=== PATIENT | male | born 1980 | race Caucasian/White ===

== ENCOUNTER 2020-08-28 19:06 | Emergency (ER) | payer MEDICARE, BC, MEDICAID ==
[2020-08-28 19:28] VITALS: BP 134/75; PULSE 100
[2020-08-28] MEDS ORDERED: Sodium Chloride 0.9% 10 ML Syringe FLUSH PRN (19:39)
--- NOTE | 2020-08-28 19:53 | EDM.PDOC ---
ED HPI GENERAL MEDICAL PROBLEM - General Chief Complaint: Neurological Problem Stated Complaint: CONFUSION Time Seen by Provider: 08/28/20 19:29 Source of Information: Reports: Patient, Provider History Limitations: Reports: Other (sleepy) - History of Present Illness INITIAL COMMENTS - FREE TEXT/NARRATIVE: The patient presents with confusion and sleepiness. The patient is dev elopmentally delayed. Staff from Support Services are here with him. They saw since yesterday the patient has been sleeping more and hard to arouse at times. He also has been confused. Today he fell asleep while eating. He has a history of seizures and he has a vagal nerve stimulator. He is also on depakote and a few other medications. He is given his medications to take daily and he has no access to his medications. There is no way he would have taken more. There has been no changes to his medications since February. He does not have a fever. He complains of no pain. He has no cough. Onset: Gradual Duration: Day(s): (Yesterday) Severity: Moderate Improves with: Reports: None Worsens with: Reports: None Associated Symptoms: Reports: Confusion. Denies: Chest Pain, Cough, Fever/Chills, Headaches, Nausea/Vomiting, Shortness of Breath - Related Data Allergies Allergy/AdvReac Type Severity Reaction Status Date / Time No Known Allergies Allergy Verified 08/28/20 19:27 Home Meds: Home Meds Multivit-Min/FA/Lycopene/Lut [Century Tablet] 1 tab PO DAILY 11/19/14 [History] Vitamin E (Dl,Tocopheryl Acet) [Vitamin E] 400 units PO DAILY 11/19/14 [History] lamoTRIgine [Lamotrigine] 100 mg PO BID 11/19/14 [History] risperiDONE [Risperdal] 1 mg PO BID 11/19/14 [History] ClonazePAM [KlonoPIN] 0.5 mg PO BID 08/28/20 [History] Divalproex Sodium 500 mg PO TID 08/28/20 [History] PARoxetine HCL [Paxil] 30 mg PO DAILY 08/28/20 [History] Ranitidine [Zantac] 150 mg PO DAILY 08/28/20 [History] Simvastatin [Zocor] 10 mg PO BEDTIME 08/28/20 [History] atoMOXetine HCl [Strattera] 25 mg PO DAILY 08/28/20 [History] Past Medical History Neurological History: Reports: Seizure, Other (See Below) Other Neuro History: being monitored for possible Parkinson's Psychiatric History: Reports: ADHD, Autism, Other (See Below) Other Psychiatric History: MR, disruptive behavior disorder - Past Surgical History Neurological Surgical History: Reports: Other (See Below) Other Neurological Surgeries/Procedures: VNS Social & Family History - Tobacco Use Tobacco Use Status *Q: Never Tobacco User Second Hand Smoke Exposure: No - Recreational Drug Use Recreational Drug Use: No ED ROS GENERAL - Review of Systems Review Of Systems: See Below Constitutional: Reports: No Symptoms HEENT: Reports: No Symptoms Respiratory: Reports: No Symptoms Cardiovascular: Reports: No Symptoms Endocrine: Reports: No Symptoms GI/Abdominal: Reports: No Symptoms : Reports: No Symptoms Musculoskeletal: Reports: No Symptoms ED EXAM, NEURO - Physical Exam Exam: See Below Exam Limited By: Other (sleepy) General Appearance: Other (sleepy) Ears: Normal External Exam Nose: Normal Inspection Head Exam: Atraumatic, Normocephalic Neck: Normal Inspection Respiratory/Chest: No Respiratory Distress, Lungs Clear, Normal Breath Sounds Cardiovascular: Regular Rate, Rhythm, No Edema, No Murmur GI/Abdominal: Soft, Non-Tender, No Organomegaly, No Mass Neurological: Other (Sleepy. He will awake easily but he falls right back asleep. He would answer some questions. He does follow commands and he had no weakness.) #1 Interpretation EKG Date: 08/28/20 Time: 19:49 Rhythm: NSR Rate (Beats/Min): 95 [place]: Normal P-Wave: Present QRS: Normal ST-T: Other (flattened T waves lateral leads) QT: Normal Course - Vital Signs Last Recorded V/S: Last Vital Signs Temp 97 F 08/28/20 19:25 Pulse 100 08/28/20 19:25 Resp 16 08/28/20 19:25 BP 134/75 08/28/20 19:25 Pulse Ox 93 L 08/28/20 19:25 - Orders/Labs/Meds Orders: Active Orders 24 hr Category Date Time Status Cardiac Monitoring [RC] . DIRECTED Care 08/28/20 19:39 Active EKG Documentation Completion [RC] STAT Care 08/28/20 19:40 Active Peripheral IV Care [RC] . DIRECTED Care 08/28/20 19:40 Active Sodium Chloride 0.9% [Saline Flush] Med 08/28/20 19:39 Active 10 ml FLUSH ASDIRECTED PRN Peripheral IV Insertion Adult [OM.PC] Stat Oth 08/28/20 19:39 Ordered Medication Orders Sodium Chloride (Sodium Chloride 0.9% 10 Ml Syringe) 10 ml FLUSH ASDIRECTED PRN PRN Reason: Keep Vein Open Labs: Laboratory Tests 08/28/20 08/28/20 08/28/20 Range/Units 20:15 20:15 20:15 WBC 12.50 H (4.23-9.07) K/mm3 RBC 4.45 L (4.63-6.08) M/mm3 Hgb 12.8 L (13.7-17.5) gm/dl Hct 39.7 L (40.1-51.0) % MCV 89.2 (79.0-92.2) fl MCH 28.8 (25.7-32.2) pg MCHC 32.2 (32.2-35.5) g/dl RDW Std Deviation 48.2 H (35.1-43.9) fL Plt Count 226 (163-337) K/mm3 MPV 9.2 L (9.4-12.3) fl Neut % (Auto) 35.8 (34.0-67.9) % Lymph % (Auto) 49.5 (21.8-53.1) % [place] % (Auto) 11.1 (5.3-12.2) % Eos % (Auto) 3.0 (0.8-7.0) Baso % (Auto) 0.4 (0.1-1.2) % Neut # (Auto) 4.47 (1.78-5.38) K/mm3 Lymph # (Auto) 6.19 H (1.32-3.57) K/mm3 [place] # (Auto) 1.39 H (0.30-0.82) K/mm3 Eos # (Auto) 0.37 (0.04-0.54) K/mm3 Baso # (Auto) 0.05 (0.01-0.08) K/mm3 Manual Slide Review Abnormal smear Sodium 144 (136-145) mEq/L Potassium 3.8 (3.5-5.1) mEq/L Chloride 106 (98-107) mEq/L Carbon Dioxide 30 (21-32) mEq/L Anion Gap 11.8 (5-15) BUN 12 (7-18) mg/dL Creatinine 0.8 (0.7-1.3) mg/dL Est Cr Clr Drug Dosing 139.85 mL/min Estimated GFR (MDRD) > 60 (>60) mL/min BUN/Creatinine Ratio 15.0 (14-18) Glucose 131 H (70-99) mg/dL Calcium 9.9 (8.5-10.1) mg/dL Magnesium 1.6 L (1.8-2.4) mg/dL Total Bilirubin 0.1 L (0.2-1.0) mg/dL AST 12 L (15-37) U/L ALT 33 (16-63) U/L Alkaline Phosphatase 50 (46-116) U/L Troponin I < 0.017 (0.00-0.056) ng/mL C-Reactive Protein <0.2 (<1.0) mg/dL Total Protein 6.5 (6.4-8.2) g/dl Albumin 3.4 (3.4-5.0) g/dl Globulin 3.1 gm/dL Albumin/Globulin Ratio 1.1 (1-2) TSH 3rd Generation (0.358-3.74) uIU/mL Urine Color (Yellow) Urine Appearance (Clear) Urine pH (5.0-8.0) Ur Specific [place] (1.005-1.030) Urine Protein (Negative) Urine Glucose (UA) (Negative) Urine Ketones (Negative) Urine Occult Blood (Negative) Urine Nitrite (Negative) Urine Bilirubin (Negative) Urine Urobilinogen (0.2-1.0) Ur Leukocyte Esterase (Negative) U Hyaline Cast (Auto) (0-5) /lpf Urine RBC (0-5) /hpf Urine WBC (0-5) /hpf Ur Squamous Epith Cells (0-5) /hpf Amorphous Sediment (NOT SEEN) /hpf Urine Bacteria (FEW) /hpf Urine Mucus (FEW) /hpf Urine Opiates Screen (TJTLVJ=149) Ur Buprenorphine Scrn (CUTOFF=10) Ur Oxycodone Screen (DWM1HQ=626) Urine Methadone Screen (POX3NV=245) Ur Propoxyphene Screen (BHLVHV=227) Ur Barbiturates Screen (CTOKJS=019) Ur Tricyclics Screen (PODGCE=552) Ur Phencyclidine Scrn (CUTOFF=25) Ur Amphetamine Screen (DHMKSS=820) U Methamphetamines Scrn (HTZOQS=066) U Benzodiazepines Scrn (OHDMGM=395) U Cocaine Metab Screen (CZCXEU=734) U Marijuana (THC) Screen (CUTOFF=50) Ethyl Alcohol 0.00 (0.00) gm% 08/28/20 08/28/20 08/28/20 Range/Units 20:15 21:10 21:10 WBC (4.23-9.07) K/mm3 RBC (4.63-6.08) M/mm3 Hgb (13.7-17.5) gm/dl Hct (40.1-51.0) % MCV (79.0-92.2) fl MCH (25.7-32.2) pg MCHC (32.2-35.5) g/dl RDW Std Deviation (35.1-43.9) fL Plt Count (163-337) K/mm3 MPV (9.4-12.3) fl Neut % (Auto) (34.0-67.9) % Lymph % (Auto) (21.8-53.1) % [place] % (Auto) (5.3-12.2) % Eos % (Auto) (0.8-7.0) Baso % (Auto) (0.1-1.2) % Neut # (Auto) (1.78-5.38) K/mm3 Lymph # (Auto) (1.32-3.57) K/mm3 [place] # (Auto) (0.30-0.82) K/mm3 Eos # (Auto) (0.04-0.54) K/mm3 Baso # (Auto) (0.01-0.08) K/mm3 Manual Slide Review Sodium (136-145) mEq/L Potassium (3.5-5.1) mEq/L Chloride (98-107) mEq/L Carbon Dioxide (21-32) mEq/L Anion Gap (5-15) BUN (7-18) mg/dL Creatinine (0.7-1.3) mg/dL Est Cr Clr Drug Dosing mL/min Estimated GFR (MDRD) (>60) mL/min BUN/Creatinine Ratio (14-18) Glucose (70-99) mg/dL Calcium (8.5-10.1) mg/dL Magnesium (1.8-2.4) mg/dL Total Bilirubin (0.2-1.0) mg/dL AST (15-37) U/L ALT (16-63) U/L Alkaline Phosphatase (46-116) U/L Troponin I (0.00-0.056) ng/mL C-Reactive Protein (<1.0) mg/dL Total Protein (6.4-8.2) g/dl Albumin (3.4-5.0) g/dl Globulin gm/dL Albumin/Globulin Ratio (1-2) TSH 3rd Generation 1.104 (0.358-3.74) uIU/mL Urine Color Yellow (Yellow) Urine Appearance Slt cloudy H (Clear) Urine pH 6.5 (5.0-8.0) Ur Specific [place] > or = 1.030 (1.005-1.030) Urine Protein Negative (Negative) Urine Glucose (UA) Negative (Negative) Urine Ketones Negative (Negative) Urine Occult Blood Negative (Negative) Urine Nitrite Negative (Negative) Urine Bilirubin Negative (Negative) Urine Urobilinogen 0.2 (0.2-1.0) Ur Leukocyte Esterase Negative (Negative) U Hyaline Cast (Auto) 10-20 H (0-5) /lpf Urine RBC Not seen (0-5) /hpf Urine WBC Not seen (0-5) /hpf Ur Squamous Epith Cells 0-5 (0-5) /hpf Amorphous Sediment Moderate H (NOT SEEN) /hpf Urine Bacteria Few (FEW) /hpf Urine Mucus Few (FEW) /hpf Urine Opiates Screen Negative (YHITSX=611) Ur Buprenorphine Scrn Negative (CUTOFF=10) Ur Oxycodone Screen Negative (QGA7WG=826) Urine Methadone Screen Negative (GFS6HL=693) Ur Propoxyphene Screen Negative (KSDCEF=469) Ur Barbiturates Screen Negative (WMBXSH=458) Ur Tricyclics Screen Negative (JSIVQU=666) Ur Phencyclidine Scrn Negative (CUTOFF=25) Ur Amphetamine Screen Negative (NNWSAK=022) U Methamphetamines Scrn Negative (UJGSIK=241) U Benzodiazepines Scrn Negative (QGWYCW=822) U Cocaine Metab Screen Negative (FCVTQQ=483) U Marijuana (THC) Screen Negative (CUTOFF=50) Ethyl Alcohol (0.00) gm% Meds: Medications Generic Name Dose Route Start Last Admin Trade Name Azar PRN Reason Stop Dose Admin Sodium Chloride 10 ml 08/28/20 19:39 Sodium Chloride 0.9% 10 Ml Syringe FLUSH ASDIRECTED PRN Keep Vein Open - Re-Assessments/Exams Free Text/Narrative Re-Assessment/Exam: 08/28/20 19:54 I ordered an IV saline lock, EKG, CT of his head, CXR, labs, UA, and urine drug screen. 08/28/20 21:48 His EKG shows a NSR with no acute changes. The CT of his head looks good. His CXR looks good. His WBC was slightly elevated at 12.5. His glucose was 131. His magnesium was a little low at 1.6. His troponin is negative. His CRP is negative. His TSH is normal. His UA shows no UTI. His UDS was negative and his ETOH was 0. I feel this may be his medications. I will have them hold his respiradone and clonazepam tonight and wean him off of the clonazepam. They will need to talk to Dr Marcelino tomorrow. Departure - Departure Time of Disposition: 21:55 Disposition: Home, Self-Care 01 Condition: Good Clinical Impression: Confusion, Daytime sleepiness - Discharge Information *PRESCRIPTION DRUG MONITORING PROGRAM REVIEWED*: Not Applicable *COPY OF PRESCRIPTION DRUG MONITORING REPORT IN PATIENT KHALIDA: Not Applicable Referrals: Elin Beach MD [Primary Care Provider] - 1 Week Forms: ED Department Discharge Additional Instructions: Do not give him his resperidone or clonazepam tonight. Continue with the resperidone 2 times per day tomorrow. Give him the clonazepam tomorrow night and the next night and then do every other night for 2 doses and then stop. Call Dr Marcelino tomorrow and get her input. She may have a totally different plan. Please return if Precious is worse. Sepsis Event Note (ED) - Evaluation Sepsis Screening Result: No Definite Risk - Focused Exam Vital Signs: Vital Signs Temp Pulse Resp BP Pulse Ox 08/28/20 19:25 97 F 100 16 134/75 93 L - My Orders Last 24 Hours: My Active Orders 08/28/20 19:39 Cardiac Monitoring [RC] . DIRECTED Sodium Chloride 0.9% [Saline Flush] 10 ml FLUSH ASDIRECTED PRN Peripheral IV Insertion Adult [OM.PC] Stat 08/28/20 19:40 EKG Documentation Completion [RC] STAT Peripheral IV Care [RC] . DIRECTED - Assessment/Plan Last 24 Hours: My Active Orders 08/28/20 19:39 Cardiac Monitoring [RC] . DIRECTED Sodium Chloride 0.9% [Saline Flush] 10 ml FLUSH ASDIRECTED PRN Peripheral IV Insertion Adult [OM.PC] Stat 08/28/20 19:40 EKG Documentation Completion [RC] STAT Peripheral IV Care [RC] . DIRECTED
--- NOTE | 2020-08-28 20:26 | CT ---
Head CT Technique: Multiple axial sections through the brain were obtained. Intravenous contrast was not utilized. Reconstructed coronal and sagittal images were obtained. Comparison: No prior intracranial imaging is available. Findings: Ventricles along with basal cisterns and sulci over the convexities appear within normal limits for the patient's age. Minimal basal ganglia calcification is seen. Very minimal area of increased density is noted within the right parietal convexity which is felt to be within the cortex. This is most likely vascular in etiology. No other abnormal parenchymal densities are seen. No evidence of intracranial hemorrhage. No midline shift or mass-effect is seen. Bone window settings were reviewed which show no acute calvarial abnormality. Visualized mastoid sinuses are clear. Retention cyst is noted within the right maxillary sinus measuring 2.2 cm. Minimal mucosal thickening is seen within the left maxillary sinus. No air-fluid levels are seen within the sinuses to indicate acute sinus disease. Impression: 1. Intracranial findings as noted above most likely incidental. Nothing acute is appreciated. 2. Mild chronic paranasal sinus findings as noted above. Diagnostic code #2
--- NOTE | 2020-08-28 21:01 | CR ---
Chest: Portable view of the chest was obtained. Comparison: No prior chest imaging is available. Small nodule is noted within the left upper lung which I believe is most likely due to a granuloma. Lungs otherwise are clear with no acute parenchymal change. Stimulating device is seen with the wire terminating within the lower left neck. Heart size and mediastinum are normal. Mild degenerative change is scattered within the spine. Slight deformity is seen within the fourth lateral right rib compatible with old healed fracture. Impression: 1. Findings as described above. 2. Nothing acute is appreciated on portable chest x-ray. Diagnostic code #2
== END 2020-08-28 22:11 | disposition home or self-care (01) ==
LOC: JD.ED 19:06
DX: R41.0 Disorientation, unspecified (principal); G47.8 Other sleep disorders; Z79.899 Other long term (current) drug therapy
CPT/HCPCS: 36415; 70450; 70450-26; 71045; 71045-26; 80053; 80306; 80307; 81001; 83735; 84443; 84484; 85025; 86140; 93005; 93010; 99284; 99285-25

== ENCOUNTER 2021-10-29 21:17 | Emergency (ER) | payer MEDICARE, BC, MEDICAID ==
[2021-10-29] MEDS ORDERED: Naloxone 2 MG/2 ML Syringe ONE (21:24)
[2021-10-29] MEDS ORDERED: Flumazenil 0.1 MG/ML 5 ML MDV ONE (21:27)
[2021-10-29] MEDS ORDERED: Sodium Chloride 0.9% 1,000 ML IV ONE (21:45)
[2021-10-29] MEDS ORDERED: propofoL 100 ML ONE (21:46)
[2021-10-29] MEDS ORDERED: Sodium Chloride 0.9% 1,000 ML ONE (21:46)
[2021-10-29] MEDS ORDERED: levETIRAcetam 1,000 MG in Sodium Chloride 0.9% 100 ML IV STA (21:52)
[2021-10-29] MEDS: propofoL 100 ML IV SCH (21:52)
[2021-10-29 22:06] LABS: ESTIMATED GFR 64 mL/min (>60)
[2021-10-29 22:20] VITALS: PULSE 28
[2021-10-29] MEDS ORDERED: Norepinephrine 4 MG in Dextrose 5% in Water 246 ML IV SCH ×2 (22:30)
[2021-10-29] MEDS ORDERED: Flumazenil 0.1 MG/ML 5 ML MDV IVPUSH ONE (22:46)
[2021-10-29] MEDS ORDERED: Naloxone 0.4 MG/ML SDV IVPUSH ONE (22:46)
[2021-10-29] MEDS ORDERED: Sodium Chloride 0.9% 1,000 ML IV SCH (23:00)
[2021-10-30] MEDS ORDERED: Iopamidol 755 Mg/ML 100 ML Bottle IVPUSH ONE ×2 (00:44)
[2021-10-30] MEDS ORDERED: Sodium Chloride 0.9% 10 ML Syringe FLUSH ONE ×2 (00:44)
[2021-10-30] MEDS ORDERED: Sodium Chloride 0.9% 100 ML IV SCH ×2 (00:45)
[2021-10-30] MEDS ORDERED: cefTRIAXone 1 GM in Sodium Chloride 0.9% 100 ML IV STA (01:14)
[2021-10-30] MEDS: propofoL 100 ML IV SCH (03:09)
[2021-10-30 03:34] VITALS: BP 115/76
== END 2021-10-30 03:05 ==
LOC: JD.ED 21:17
DX: S92.411A Displaced fracture of proximal phalanx of right great toe, initial encounter for closed fracture (principal); S92.412A Displaced fracture of proximal phalanx of left great toe, initial encounter for closed fracture; S82.252A Displaced comminuted fracture of shaft of left tibia, initial encounter for closed fracture; S82.432A Displaced oblique fracture of shaft of left fibula, initial encounter for closed fracture; S92.912A Unspecified fracture of left toe(s), initial encounter for closed fracture; R73.9 Hyperglycemia, unspecified; R91.8 Other nonspecific abnormal finding of lung field; R06.81 Apnea, not elsewhere classified; E78.00 Pure hypercholesterolemia, unspecified; I10 Essential (primary) hypertension; Z79.899 Other long term (current) drug therapy; Z20.822 Contact with and (suspected) exposure to COVID-19; W18.39XA Other fall on same level, initial encounter
CPT/HCPCS: 29515; 31500; 36415; 36600; 51702; 70450; 70450-26; 71045; 71045-26; 71275; 71275-26; 72125; 72125-26; 73590-26-LT; 73590-LT; 73630-26-LT; 73630-26-RT; 73630-LT; 73630-RT; 80053; 80143; 80164; 80179; 80306; 80307; 82803; 82947; 83735; 84484; 85025; 85379; 85610; 85730; 87040; 87154; 93005; 93010; 96361; 96365; 96366; 96367; 96375; 99285; 99285-25; J0696; J1953; J2310; J2704; J3490; J7030; J7060; Q9967; U0002